=== PATIENT | female | born 1955 | race Caucasian/White ===

== ENCOUNTER → 2017-10-04 16:46 | Outpatient (CLI) | payer OTHER, SELFPAY | PROVIDERS: Family Provider Dentist; PCP Dentist; Visit Provider Otolaryngology Otolaryngology/Facial Plastic Surgery | DX: J32.9 Chronic sinusitis, unspecified (principal); J33.9 Nasal polyp, unspecified | CPT/HCPCS: 87070; 87077; 87186; 87205 ==

== ENCOUNTER → 2017-12-11 16:56 | Outpatient (CLI) | payer OTHER, SELFPAY ==
--- NOTE | 2017-12-11 16:59 | CT_ITS ---
STUDY: CT FACIAL BONES WITHOUT CONTRAST REASON FOR EXAM: Female, 62 years old. Sinusitis right greater than left. History of congestion for 2 years. RADIATION DOSAGE (If Supplied By Facility): CTDIvol = ( 29.38 ) mGy, DLP = ( 532.76 ) mGycm TECHNIQUE: The patient was scanned in a multi detector CT scanner. Sagittal and coronal images were reconstructed. Individualized dose optimization techniques were used for this CT. COMPARISON: None. FINDINGS: Normal soft tissue structures. Normal orbital marina and orbital contents. Normal nasal bones and anterior nasal spine. Normal facial bones. There is no demonstrated fracture. There is total opacification of the frontal, ethmoid and left sphenoid sinuses with near total opacification of the left maxillary and right sphenoid sinuses. Moderate right maxillary sinus mucosal thickening. Ostiomeatal complexes are occluded. No air-fluid levels. There is not significant wall thickening of the paranasal sinuses, a finding which would suggest chronic inflammation. Mastoid air cells are well aerated. CT/Sinus/Facial Bone IMPRESSION: Severe pansinusitis or polyposis. Consider ENT consult. Electronically Signed: Von Minor MD at 2:55 EDT , Service support ,
== END ==
PROVIDERS: Family Provider Student in an Organized Health Care Education/Training Program; PCP Student in an Organized Health Care Education/Training Program; Visit Provider Otolaryngology Otolaryngology/Facial Plastic Surgery
DX: J32.9 Chronic sinusitis, unspecified (principal); J33.1 Polypoid sinus degeneration; J45.909 Unspecified asthma, uncomplicated
CPT/HCPCS: 70486

== ENCOUNTER → 2018-01-26 15:02 | Outpatient (CLI) | payer OTHER, SELFPAY ==
--- NOTE | 2018-01-26 15:04 | ECHOD_ITS ---
Reason For Study: VALVULAR HEART DISEASE Procedure This was a 2D Doppler, Color Flow transthoracic echocardiogram. The exam was of adequate technical quality. Exam performed in department. Left Ventricle Normal LV size. Left ventricular systolic function is normal. The estimated ejection fraction is 65 %. No evidence for diastolic dysfunction. No regional wall motion abnormalities noted. Right Ventricle Normal RV size. Normal systolic function. Atria The left atrium is mildly enlarged. Normal right atrium. No doppler evidence for ASD. Mitral Valve There is no mitral annular calcification. Mild diffuse mitral valve thickening. Chordal systolic anterior motion of the mitral valve. Mild (1+) mitral valve insufficiency. Tricuspid Valve Normal tricuspid valve. Mild to moderate (1-2+) tricuspid valve insufficiency. Right ventricular systolic pressure estimated to be 26 mmHg. Aortic Valve Trisinus/trileaflet aortic valve. Normal aortic valve. Mild (1+) aortic valve insufficiency. Pulmonic Valve The pulmonic valve is not well visualized. Great Vessels Normal sized aortic root. Pericardium/Pleural No pericardial effusion. MMode/2D Measurements & Calculations LVIDd: 4.2 cm IVSd: 0.94 cm Ao root diam: 3.4 cm LVIDs: 2.5 cm LVPWd: 0.90 cm RVDd: 3.3 cm FS: 39.5 % LAV(MOD-bp): 48.9 ml LVAd ap4: 30.8 cm2 SV(MOD-sp4): 61.8 ml LAV(MOD-bp) Indexed: 28.5 ml/m2 EDV(MOD-sp4): 100.5 ml LAV(MOD-sp2): 52.6 ml EDV(sp4-el): 107.4 ml LAV(MOD-sp4): 47.3 ml LVAs ap4: 16.9 cm2 ESV(MOD-sp4): 38.7 ml ESV(sp4-el): 40.2 ml EF(MOD-sp4): 61.5 % EF(sp4-el): 62.6 % SV(sp4-el): 67.3 ml LA A4 area: 17.0 cm2 LA dimension(2D): 3.4 cm RA A4 area: 12.2 cm2 Time Measurements MV dec time: 0.16 sec Doppler Measurements & Calculations MV E max harsh: 56.7 cm/sec Lat Peak E' Harsh: 9.7 cm/sec Med Peak E' Harsh: 6.9 cm/sec MV A max harsh: 52.5 cm/sec E/E' lat: 5.9 E/E' med: 8.2 MV E/A: 1.1 Ao V2 max: 137.1 cm/sec AI max harsh: 498.5 cm/sec LV V1 max: 108.2 cm/sec Ao max P.6 mmHg AI max P.4 mmHg LV V1 max P.7 mmHg AI dec slope: 189.8 cm/sec2 AI P1/2t: 769.2 msec TR max harsh: 240.0 cm/sec TR max P.1 mmHg Interpretation Summary Left ventricular systolic function is normal. The estimated ejection fraction is 65 %. The left atrium is mildly enlarged. Mild diffuse mitral valve thickening. Chordal systolic anterior motion of the mitral valve. Mild (1+) mitral valve insufficiency. Mild to moderate (1-2+) tricuspid valve insufficiency. Mild (1+) aortic valve insufficiency. Right ventricular systolic pressure estimated to be 26 mmHg. No evidence for diastolic dysfunction. Ordering Physician: Rahul Meyers Referring Physician: JOE RASHID Performed By: Pat Welsh, RDCS, RVT
== END ==
PROVIDERS: Family Provider Student in an Organized Health Care Education/Training Program; PCP Student in an Organized Health Care Education/Training Program; Referring Provider Internal Medicine Cardiovascular Disease; Visit Provider Internal Medicine Cardiovascular Disease
DX: I35.1 Nonrheumatic aortic (valve) insufficiency (principal)
CPT/HCPCS: 93306

== ENCOUNTER → 2018-03-07 15:07 | Outpatient (CLI) | payer OTHER, SELFPAY ==
[2018-03-07 14:25] VITALS: BMI 31.2
--- NOTE | 2018-03-07 15:15 | RAD_ITS ---
STUDY: X-RAY CHEST REASON FOR EXAM: Female, 62 years old. Cough x2 1/2 years TECHNIQUE: PA and 2 lateral views of the chest. COMPARISON: None. FINDINGS: The lungs are clear and expanded. There is no demonstrated pleural abnormality. Normal size heart. Normal mediastinum and lilia. Normal visualized pulmonary arteries. Normal visualized aortic arch and descending thoracic aorta. Normal visualized thoracic spine. Normal visualized ribs, clavicles, and shoulders. There is no demonstrated abnormality of the visualized soft tissue structures of the upper abdomen. RAD/Chest PA and Lateral IMPRESSION: No acute pulmonary process Electronically Signed: Bruno Rivera MD at 19:06 EST , Service support ,
== END ==
PROVIDERS: Family Provider Student in an Organized Health Care Education/Training Program; Referring Provider Physician Assistant Medical; Visit Provider Physician Assistant Medical
DX: R05 Cough (principal)
CPT/HCPCS: 71046

== ENCOUNTER → 2018-04-13 14:00 | Outpatient (CLI) | payer OTHER, SELFPAY ==
[2018-03-07 14:25] VITALS: BMI 31.2
[2018-04-13 14:55] LABS: Hematocrit 44.8 % (37-47); Hemoglobin 14.9 g/dl (12.0-15.0); Mean Corp Hgb Conc 33.3 g/gl (32-36); Mean Corpuscular Hgb 30.6 pg (27.0-32.0); Mean Platelet Vol. 11.2 fl (6.2-12.0); Platelet Count 241 K/mm3 (150-450); RBC Distribution Width CV 13.2 % (11.6-14.6); RBC Distribution Width SD 43.8 fl (35.1-43.9); Red Blood Count 4.87 M/mm3 (4.2-5.4); Scan Indicated on CBC? Y/N NO; White Blood Count 12.1 K/mm3 (4.4-11.0)
[2018-04-13 15:25] LABS: Anion Gap 9 (5-15); BUN 21 mg/dL (7-18); BUN/Creat Ratio 30.1 RATIO (10-20); Calcium,Total 9.6 mg/dL (8.5-10.1); Chloride 103 mmol/L (98-107); EST Glomerular Filtration Rate 90 mL/min (>60); Est Glom Filt Rate - Afr Amer 109 mL/min (>60); Glucose 105 mg/dL (74-106); Potassium 4.1 mmol/L (3.5-5.1); Sodium Level 139 mmol/L (136-145)
== END ==
PROVIDERS: Family Provider Student in an Organized Health Care Education/Training Program; PCP Student in an Organized Health Care Education/Training Program; Referring Provider Otolaryngology; Visit Provider Otolaryngology
DX: Z01.818 Encounter for other preprocedural examination (principal)
CPT/HCPCS: 36415; 80048; 85027

== ENCOUNTER → 2018-04-23 16:54 | Outpatient (CLI) | payer OTHER, SELFPAY ==
[2018-03-07 14:25] VITALS: BMI 31.2
== END ==
PROVIDERS: Family Provider Student in an Organized Health Care Education/Training Program; PCP Student in an Organized Health Care Education/Training Program; Referring Provider Otolaryngology; Visit Provider Otolaryngology
DX: J02.9 Acute pharyngitis, unspecified (principal)
CPT/HCPCS: 87070

== ENCOUNTER → 2018-08-21 10:49 | Outpatient (CLI) | payer OTHER, SELFPAY ==
[2018-03-07 14:25] VITALS: BMI 31.2
== END ==
PROVIDERS: Family Provider Student in an Organized Health Care Education/Training Program; PCP Student in an Organized Health Care Education/Training Program; Referring Provider Otolaryngology; Visit Provider Otolaryngology
DX: Z00.00 Encounter for general adult medical examination without abnormal findings (principal)

== ENCOUNTER 2018-08-28 08:57 | Day surgery (SDC) | payer OTHER, SELFPAY ==
[2018-03-07 14:25] VITALS: BMI 31.2
--- NOTE | 2018-08-24 17:02 | EKG12_ITS ---
Test Reason : PRE OP Blood Pressure : / mmHG Vent. Rate : 072 BPM Atrial Rate : 072 BPM P-R Int : 158 ms QRS Dur : 080 ms QT Int : 376 ms P-R-T Axes : 054 009 041 degrees QTc Int : 411 ms Normal sinus rhythm Normal ECG Confirmed by JOHN PATEL, ARIEL ([id number]), acquisition editor KATHERINE ALMEIDA ([id number]) on 08/28/2018 8:55:02 AM Referred By: Marito Driscoll Confirmed By:ARIEL LOPEZ MD
[2018-08-24 17:12] LABS: Hematocrit 44.3 % (37-47); Hemoglobin 14.6 g/dl (12.0-15.0); Mean Corpuscular Hgb 30.6 pg (27.0-32.0); Mean Corpuscular Volume 92.9 fL (81-99); Mean Platelet Vol. 10.2 fl (6.2-12.0); Platelet Count 291 K/mm3 (150-450); Red Blood Count 4.77 M/mm3 (4.2-5.4); White Blood Count 6.9 K/mm3 (4.4-11.0)
[2018-08-24 17:14] LABS: Scan Indicated on CBC? Y/N NO
[2018-08-24 17:26] LABS: Anion Gap 7 (5-15); BUN 21 mg/dL (7-18); BUN/Creat Ratio 24.4 RATIO (10-20); Calcium,Total 9.3 mg/dL (8.5-10.1); Chloride 106 mmol/L (98-107); Creatinine, Serum 0.86 mg/dL (0.55-1.02); EST Glomerular Filtration Rate 71 mL/min (>60); Est Glom Filt Rate - Afr Amer 86 mL/min (>60); Glucose 94 mg/dL (74-106); Sodium Level 144 mmol/L (136-145)
[2018-08-28] VITALS (7 sets, daily range): BP systolic 126–158; BP diastolic 65–86; PULSE 52–74; RESP 15–18; TEMP 36–36.4; O2SAT 98–100; BMI 30.4
--- NOTE | 2018-08-28 09:57 | PCM.DC ---
You will use the following diet at home:: No restrictions Discharge Activity: May not drive while taking narcotic pain medications. Call your doctor if your incision/area has: Sudden Increased Bleeding Additional Dressing/Incision Instructions:: irrigate nose/sinuses 6 times per day with nasal saline Allergies/Adverse Reactions: Allergies penicillin G Adverse Reaction (Severe, Verified 08/21/18 10:11) swelling at injection site when child Medications to take at Discharge albuterol sulfate HFA 90 mcg/actuation aerosol inhaler 2 puff INHALATION Q6H PRN 04/05/17 fluticasone 250 mcg-salmeterol 50 mcg/dose blistr powdr for inhalation 1 inh INHALATION BID 03/07/18 Budesonide [Rhinocort Allergy] 8.43 ml NS DAILY 08/21/18 Calcium Carbonate [Calcium] 600 mg PO DAILY 08/21/18 Cholecalciferol (Vitamin D3) [Vitamin D3] 2,000 unit PO DAILY 08/21/18 Methylsulfonylmethane [MSM] 1,000 mg PO DAILY 08/21/18 Orders to be completed after discharge: 12 Lead EKG [CVS] Time Frame: 08/21/18, Facility: [facility], Location: Cardiovascular Services CBC-Complete Blood Cnt No Diff Time Frame: 08/21/18, Location: Laboratory Primary Care Physician: Wilfredo Oconnell MD [Primary Care Provider] - Test Results: Test results from this visit will be discussed in further detail at your follow-up appointment, if applicable. Please Follow Up With: Marito Driscoll MD When: 1 week
--- NOTE | 2018-08-28 10:13 | OP.PCM_ITS ---
Problem List (1) Chronic pansinusitis Status: Chronic (2) Chronic serous otitis media of right ear Status: Chronic Report of Operation Date of Procedure: 08/28/18 Pre-Operative Diagnosis: 1. chronic pansinusitis. 2. chronic serous otitis media Post-Operative Diagnosis: 1. chronic pansinusitis. 2. chronic serous otitis media Surgery/Procedure Performed:: 1. endoscopic total ethmoidectomy with sphenoidotomy with removal of contents, right and left. 2. endoscopic maxillary antrostomy with removal of contents, right and left. 3. endoscopic frontal sinus exploration, right and left. 4. excision extensive nasal polyps, right and left. 5. image guidance navigation. 6. placement of pressure equalization tube, right ear Type of Anesthesia:: General Description of Procedure: on the day of the procedure, after appropriate informed consent was obtained, the patient was brought to the operating room and placed in supine position on the operating table. she was placed under general endotracheal anesthesia by the anesthesiologist. the endotracheal tube was secured, the eyes were lubricated. the bilateral nasal cavities were decongested with oxymetazoline soaked pledgets. the right ear was examined with the binocular operating microscope. a speculum was placed. the tympanic membrane was viewed in its entirety and found to be intact. a radial myringotomy was made and a crews tympanostomy tube was placed. floxin otic drops were instilled. the zero degree endoscope was introduced into the left nasal cavity. the superior attachment of the middle turbinate and uncinate process was injected with lidocaine/epinephrine. large polyps of the middle meatus and sphenoethmoidal recess were removed with the microdebrider. an antrostomy/uncinectomy was removed with a chapincito elevator and gilbert. the antrostomy was widened with a back biter. contents were removed. the ethmoid bulla was entered bluntly with the suction. a total ethmoidectomy was performed with a combination of a curette, an upgoing blakesley and the microdebrider. further polyps were removed. this was taken superiorly to the skull base and laterally to the lamina. a stankewicz maneuver was performed and no laminar defect was noted. the frontal recess was explored lateral to the middle turbinate and sinus contents were removed. the natural sphenoid os was opened and widened with a mushroom punch. contents were removed. the anterior/inferior portion of the middle turbinate was removed with turbinate scizzors. hemostasis was achieved with suction cautery. the area was irrigated with saline. floseal was placed in the ethmoid chamber. a propel stent was deployed medial to the lamina. the zero degree endoscope was introduced into the right nasal cavity. the superior attachment of the middle turbinate and uncinate process was injected with lidocaine/epinephrine. large polyps of the middle meatus and sphenoe thmoidal recess were removed with the microdebrider. an antrostomy/uncinectomy was removed with a chapincito elevator and gilbert. the antrostomy was widened with a back biter. contents were removed. the ethmoid bulla was entered bluntly with the suction. a total ethmoidectomy was performed with a combination of a curette, an upgoing blakesley and the microdebrider. further polyps were removed. this was taken superiorly to the skull base and laterally to the lamina. a stankewicz maneuver was performed and no laminar defect was noted. the frontal recess was explored lateral to the middle turbinate and sinus contents were removed. the natural sphenoid os was opened and widened with a mushroom punch. contents were removed. the anterior/inferior portion of the middle turbinate was removed with turbinate scizzors. hemostasis was achieved with suction cautery. the area was irrigated with saline. judy was placed bilaterally. a propel stent was deployed medial to the lamina. an orogastric tube was inserted and gastric contents were evacuated. the patient was awoken and extubated, then taken to the PACU in stable condition.
--- NOTE | 2018-08-28 10:30 | ETH_PTH ---
PATIENT: DELONTE KOHLI LOC: [facility] [place] U#:[id number] AGE/SX: 63/F ROOM: RE08/28/[address]: Dr. Oswaldo Driscoll MD : [id number] BED: DIS: 08/28/2018 SPEC #: [id number] RECD: 08/28/18 16:35 STATUS: MAE [place] #: [id number] RHIANNON: 08/28/18 10:[address]: Oswaldo Driscoll DEPT: SURGICAL PATHOLOGY RECD BY: Luis Monet ENTERED: 08/29/18 11:36 SP TYPE: ETH TISS OTHR DR: Dr. Wilfredo Oconnell MD Tissues: A - Ethmoid sinus, NOS B - Ethmoid sinus, NOS Procedures: Decalcification bone/plaque Surgery Specimen Level IV HEADER OPERATION: Functional endoscopic sinus surgery, myringotomy, tubes PRE-OP DIAGNOSIS: Chronic pansinusitis, chronic serous otitis media of right ear TISSUE SUBMITTED: A. Left sinus contents, B. Right sinus contents MICROSCOPIC DIAGNOSIS A. Left sinus contents: Fragments of respiratory mucosa with chronic inflammation and bone. A few organisms consistent with actinomyces colonies. B. Right sinus contents: Fragments of respiratory mucosa with chronic inflammation and bone. A few organisms consistent with actinomyces colonies. SJ:miya 09/03/18 COMMENT Clinical correlation and appropriate follow up are necessary. Case has been reviewed in consultation with Dr. Crook who concurs with the above diagnosis. IDC:AM MICROSCOPIC DESCRIPTION Slides are reviewed. GROSS DESCRIPTION A - Received in fixative is one container labeled with the patient's name and designated left sinus contents. The specimen consists of multiple fragments of hemorrhagic soft tissue mixed with possible fragments of bone that in aggregate measure 6 x 4 x 2.5 cm. Elevator Worker tissue is submitted in four cassettes after decalcification. B - Received in fixative is one container labeled with the patient's name and designated right sinus contents. The specimen consists of multiple fragments of hemorrhagic soft tissue mixed with possible fragments of bone that in aggregate measure 7 x 7 x 3 cm. Elevator Worker tissue is submitted in four cassettes after decalcification. / SJ:miya 08/29/18 TC:3 CPT: 33446 x2, 09644 x2
[2018-08-28] MEDS: Oxymetazoline 0.05% 1 SPRAY SPRAY.BTL 15 SPRAY ×2 (11:00→11:22)
== END 2018-08-28 15:00 | disposition home or self-care (01) ==
LOC: SDC 09:01 → AC 09:05
PROVIDERS: Family Provider Student in an Organized Health Care Education/Training Program; PCP Student in an Organized Health Care Education/Training Program; Referring Provider Otolaryngology; Visit Provider Otolaryngology
PROC: (CPT 31256; principal; 2018-08-28 10:00)
PROC: (CPT 31256; 2018-08-28 10:00)
DX: J32.4 Chronic pansinusitis (principal); H65.21 Chronic serous otitis media, right ear; J33.9 Nasal polyp, unspecified; G47.30 Sleep apnea, unspecified
CPT/HCPCS: 31256; 31259; 69436; 36415; 80048; 85027; 88305; 88311; 93005; J7120; J2405

== ENCOUNTER → 2018-10-08 15:32 | Outpatient (CLI) | payer OTHER, SELFPAY ==
[2018-08-28 09:19] VITALS: BMI 30.4
== END ==
PROVIDERS: Family Provider Student in an Organized Health Care Education/Training Program; PCP Student in an Organized Health Care Education/Training Program; Referring Provider Otolaryngology; Visit Provider Otolaryngology
DX: J32.9 Chronic sinusitis, unspecified (principal)
CPT/HCPCS: 87070; 87077; 87186; 87205

== ENCOUNTER → 2020-09-18 16:03 | Outpatient (CLI) | payer OTHER, SELFPAY ==
[2018-08-28 09:19] VITALS: BMI 30.4
== END ==
PROVIDERS: PCP Student in an Organized Health Care Education/Training Program; Referring Provider Otolaryngology; Visit Provider Otolaryngology
DX: H92.10 Otorrhea, unspecified ear (principal)
CPT/HCPCS: 87070; 87075; 87077; 87186; 87205

== ENCOUNTER → 2021-12-16 | Outpatient (CLI) | payer BC, SELFPAY | END | disposition home or self-care (01) | PROVIDERS: PCP Student in an Organized Health Care Education/Training Program; Visit Provider Otolaryngology | DX: J32.9 Chronic sinusitis, unspecified (principal) | CPT/HCPCS: 87070; 87077; 87205 ==